=== PATIENT | male | born 1960 | race Caucasian/White ===

== ENCOUNTER 2018-05-29 05:35 | Inpatient (IN) | payer OTHER ==
[2018-05-24 10:57] LABS: BILIRUBIN,URINE NEGATIVE (NEGATIVE); BLOOD, URINE NEGATIVE (NEGATIVE); CLARITY/URINE CLEAR (CLEAR); COLOR,URINE YELLOW (YELLOW); GLUCOSE,URINE NEGATIVE (NEGATIVE); KETONES,URINE NEGATIVE (NEGATIVE); LEUKOCYTE ESTERASE ,URINE NEGATIVE (NEGATIVE); NITRITE, URINE NEGATIVE (NEGATIVE); PROTEIN URINE NEGATIVE (NEGATIVE); UROBILINOGEN,URINE 0.2 (0.2-1.0)
[2018-05-24 11:05] LABS: BASOPHILS # (AUTO) 0.1 K/uL (0.0-0.2); BASOPHILS % (AUTO) 1.7 % (0.0-2.0); CALCIUM 9.5 mg/dL (8.4-11.0); CREATININE 0.79 mg/dL (0.55-1.30); EOSINOPHILS # (AUTO) 0.2 K/uL (0.0-0.4); EOSINOPHILS % (AUTO) 3.4 % (0.0-4.0); HEMATOCRIT 46.8 % (36-54); HEMOGLOBIN 15.3 g/dL (14.0-18.0); LYMPHOCYTES # (AUTO) 1.3 K/uL (1.0-5.5); LYMPHOCYTES % (AUTO) 21.4 % (20.5-51.5); MEAN CORPUSCULAR HEMOGLOBIN 30 pg (27-31); MEAN CORPUSCULAR HGB CONC 33 % (32-36); MEAN CORPUSCULAR VOLUME 92 fL (79.0-98.0); MONOCYTES # (AUTO) 0.6 K/uL (0.0-1.0); MONOCYTES % (AUTO) 9.5 % (1.7-9.3); NEUTROPHILS # (AUTO) 3.9 K/uL (1.8-7.7); PLATELET COUNT (AUTO) 330 K/uL (130-430); POTASSIUM 4.3 mmol/L (3.5-5.1); RED BLOOD CELL COUNT(AUTO) 5.07 MIL/uL (4.2-6.2); WHITE BLOOD COUNT (AUTO) 6.1 K/uL (4.8-10.8)
[~2018-05-29] VITALS: Ht 175.3 cm; Wt 90.7 kg
[2018-05-29] MEDS ORDERED: ACETAMINOPHEN 500 MG TABLET ONE (06:23)
[2018-05-29] MEDS ORDERED: CELECOXIB 200 MG CAPSULE ONE (06:24)
[2018-05-29] MEDS ORDERED: GABAPENTIN 300 MG CAPSULE ONE (06:24)
[2018-05-29] MEDS ORDERED: TRANEXAMIC ACID 650 MG TABLET ONE (06:25)
[2018-05-29] MEDS ORDERED: oxyCODONE HCL 10 MG TAB.ER.12H PO ONE (06:25)
[2018-05-29] MEDS ORDERED: LORA-259 PO (06:38)
[2018-05-29] MEDS ORDERED: IBUP-2101 (06:38)
[2018-05-29] MEDS ORDERED: VENL37.55 PO (06:38)
[2018-05-29] MEDS ORDERED: OMEP20TA20 PO (06:38)
[2018-05-29] MEDS ORDERED: CEFAZOLIN 2 GM IVPB PREMIX 50 ML IV ONE (07:00)
[2018-05-29] MEDS ORDERED: POLYMYXIN 500,000/BACIT.10,000 UNITS in NS IRR 1 L IR ONE (07:22)
[2018-05-29] MEDS ORDERED: VANCOMYCIN HCL 1000 MG/VIAL IV ONE (08:00)
[2018-05-29] MEDS ORDERED: PROPOFOL 200MG/ 20ML VIAL (DIPRIVAN) IV ONE (08:00)
[2018-05-29] MEDS ORDERED: ROPIVACAINE HCL/PF 5 MG/ML 0.5% 30 ML VIAL INJ ONE (08:00)
[2018-05-29] MEDS ORDERED: TRANEXAMIC ACID 1,000 MG/10 ML VIAL IV ONE (08:00)
[2018-05-29] MEDS ORDERED: BUPIVACAINE /DEX PF 0.75% SPINAL 2 ML AMP INJ ONE (08:00)
[2018-05-29] MEDS ORDERED: ROPIVACAINE 0.2% (NAROPIN) PF SOLUTION 100 ML BOTTLE EP ONE (08:00)
[2018-05-29] MEDS ORDERED: ONDANSETRON HCL 4 MG/2 ML VIAL IVP ONE (08:00)
[2018-05-29] MEDS ORDERED: LR 1,000 ML IV.SOLN IV ONE (08:00)
[2018-05-29] MEDS ORDERED: MIDAZOLAM HCL 5 MG/5 ML VIAL IVP ONE (08:00)
[2018-05-29] MEDS ORDERED: ACETAMINOPHEN 500 MG TABLET PO ONE (08:45)
[2018-05-29] MEDS ORDERED: NALOXONE HCL 0.4 MG/ML AMP (NARCAN) IVP PRN ×2 (09:00)
[2018-05-29] MEDS ORDERED: KETOROLAC TROMETHAMINE 60 MG/2 ML VIAL IM PRN (09:00)
[2018-05-29] MEDS ORDERED: NALBUPHINE HCL 10 MG/ML AMP IVP PRN ×2 (09:00)
[2018-05-29] MEDS ORDERED: DIPHENHYDRAMINE INJ 50 MG/ML VIAL IVP PRN ×2 (09:00)
[2018-05-29] MEDS ORDERED: ONDANSETRON HCL 4 MG/2 ML VIAL IVP PRN ×2 (09:00)
[2018-05-29] MEDS ORDERED: OXYCODONE/ACETAMINOPHEN *10*mg/325 mg TABLET PO PRN (09:00)
[2018-05-29] MEDS ORDERED: MORPHINE SULFATE 10MG/10ML PF AMP SP SCH (09:00)
[2018-05-29] MEDS ORDERED: fentaNYL CITRATE/PF 100 MCG/2 ML AMP IVP PRN ×2 (09:00)
[2018-05-29] MEDS ORDERED: GABAPENTIN 300 MG CAPSULE PO ONE (09:30)
[2018-05-29] MEDS ORDERED: CELECOXIB 200 MG CAPSULE PO ONE (09:30)
[2018-05-29] MEDS ORDERED: TRANEXAMIC ACID 650 MG TABLET PO ONE (09:30)
[2018-05-29] MEDS ORDERED: ACETAMINOPHEN 325 MG TABLET PO PRN (10:00)
[2018-05-29] MEDS ORDERED: BISACODYL 10 MG/SUPPOSITORY RC PRN (10:00)
[2018-05-29] MEDS ORDERED: D5/0.45 NS 1,000 ML IV ONE (10:00)
[2018-05-29 11:39] VITALS: BP_SYST 129
[2018-05-29 12:30] VITALS: BP_SYST 122
[2018-05-29] MEDS: CEFAZOLIN 1 GM IVPB PREMIX 50 ML IV SCH ×2 (13:39→18:12)
[2018-05-29 16:00] VITALS: BP_SYST 129
[2018-05-29] MEDS: MORPHINE SULFATE 10 MG/ML VIAL IM PRN ×2 (16:39→21:10)
[2018-05-29 16:40] VITALS: BP_SYST 114
[2018-05-29] MEDS: RIVAROXABAN 10 MG TABLET PO SCH (18:11)
[2018-05-29 20:00] VITALS: BP_SYST 106
[2018-05-30 02:10] VITALS: BP_SYST 112
[2018-05-30] MEDS: MORPHINE SULFATE 10 MG/ML VIAL IM PRN ×2 (05:32→10:58)
[2018-05-30 07:54] VITALS: BP_SYST 151
[2018-05-30 08:01] LABS: BASOPHILS # (AUTO) 0.1 K/uL (0.0-0.2); BASOPHILS % (AUTO) 0.7 % (0.0-2.0); EOSINOPHILS # (AUTO) 0.2 K/uL (0.0-0.4); EOSINOPHILS % (AUTO) 2.2 % (0.0-4.0); HEMATOCRIT 36.9 % (36-54); HEMOGLOBIN 12.3 g/dL (14.0-18.0); LYMPHOCYTES % (AUTO) 13.3 % (20.5-51.5); MEAN CORPUSCULAR HEMOGLOBIN 31 pg (27-31); MEAN CORPUSCULAR HGB CONC 33 % (32-36); MEAN CORPUSCULAR VOLUME 94 fL (79.0-98.0); MONOCYTES # (AUTO) 0.5 K/uL (0.0-1.0); MONOCYTES % (AUTO) 7.3 % (1.7-9.3); NEUTROPHILS # (AUTO) 5.6 K/uL (1.8-7.7); NEUTROPHILS % (AUTO) 76.5 % (40.0-70.0); PLATELET COUNT (AUTO) 293 K/uL (130-430); RED BLOOD CELL COUNT(AUTO) 3.92 MIL/uL (4.2-6.2); RED CELL DISTRIBUTION WIDTH 13.4 % (9.0-15.0); WHITE BLOOD COUNT (AUTO) 7.4 K/uL (4.8-10.8)
[2018-05-30 08:09] LABS: CALCIUM 8.2 mg/dL (8.4-11.0); CREATININE 0.78 mg/dL (0.55-1.30); POTASSIUM 3.9 mmol/L (3.5-5.1)
[2018-05-30] MEDS ORDERED: ZOLPIDEM TARTRATE 5 MG TABLET PO PRN (08:30)
[2018-05-30] MEDS: ROPIVACAINE 0.2% 550 ML INJ SCH ×2 (08:46→09:39)
[2018-05-30] MEDS: Effexor XR 37.5 MG PO SCH (09:08)
[2018-05-30 12:37] VITALS: BP_SYST 106
[2018-05-30] MEDS: HYDROcodone/ACETAMIN 7.5-325 MG TAB PO PRN ×2 (16:26→21:05)
[2018-05-30 16:33] VITALS: BP_SYST 131
[2018-05-30] MEDS: RIVAROXABAN 10 MG TABLET PO SCH (17:40)
[2018-05-30 19:19] VITALS: BP_SYST 137
[2018-05-30 23:19] VITALS: BP_SYST 141
[2018-05-31] MEDS: HYDROcodone/ACETAMIN 7.5-325 MG TAB PO PRN ×4 (02:18→17:49)
[2018-05-31 06:57] LABS: BASOPHILS % (AUTO) 0.3 % (0.0-2.0); EOSINOPHILS # (AUTO) 0.2 K/uL (0.0-0.4); EOSINOPHILS % (AUTO) 1.8 % (0.0-4.0); HEMATOCRIT 35.8 % (36-54); HEMOGLOBIN 11.8 g/dL (14.0-18.0); LYMPHOCYTES # (AUTO) 1.1 K/uL (1.0-5.5); MEAN CORPUSCULAR HEMOGLOBIN 31 pg (27-31); MEAN CORPUSCULAR HGB CONC 33 % (32-36); MEAN CORPUSCULAR VOLUME 94 fL (79.0-98.0); MONOCYTES # (AUTO) 0.8 K/uL (0.0-1.0); MONOCYTES % (AUTO) 8.9 % (1.7-9.3); NEUTROPHILS # (AUTO) 6.5 K/uL (1.8-7.7); PLATELET COUNT (AUTO) 249 K/uL (130-430); RED BLOOD CELL COUNT(AUTO) 3.81 MIL/uL (4.2-6.2); RED CELL DISTRIBUTION WIDTH 13.3 % (9.0-15.0); WHITE BLOOD COUNT (AUTO) 8.6 K/uL (4.8-10.8)
[2018-05-31 07:40] LABS: CALCIUM 8.7 mg/dL (8.4-11.0); CREATININE 0.83 mg/dL (0.55-1.30); POTASSIUM 4.3 mmol/L (3.5-5.1)
[2018-05-31 08:00] VITALS: BP_SYST 118
[2018-05-31] MEDS: ROPIVACAINE 0.2% 550 ML INJ SCH (08:46)
[2018-05-31] MEDS: Effexor XR 37.5 MG PO SCH (09:01)
[2018-05-31 12:35] VITALS: BP_SYST 130
[2018-05-31 13:40] VITALS: BP_SYST 138
[2018-05-31] MEDS: MORPHINE SULFATE 10 MG/ML VIAL IM PRN ×2 (13:40→21:52)
[2018-05-31 16:36] VITALS: BP_SYST 129
[2018-05-31] MEDS: RIVAROXABAN 10 MG TABLET PO SCH (17:50)
[2018-05-31 20:00] VITALS: BP_SYST 114
[2018-06-01 00:26] VITALS: BP_SYST 130
[2018-06-01] MEDS: HYDROcodone/ACETAMIN 7.5-325 MG TAB PO PRN ×4 (02:46→15:40)
[2018-06-01 06:51] LABS: BASOPHILS # (AUTO) 0.1 K/uL (0.0-0.2); BASOPHILS % (AUTO) 0.7 % (0.0-2.0); EOSINOPHILS # (AUTO) 0.3 K/uL (0.0-0.4); HEMATOCRIT 31.9 % (36-54); HEMOGLOBIN 10.6 g/dL (14.0-18.0); LYMPHOCYTES # (AUTO) 1.2 K/uL (1.0-5.5); LYMPHOCYTES % (AUTO) 15.2 % (20.5-51.5); MEAN CORPUSCULAR HEMOGLOBIN 31 pg (27-31); MEAN CORPUSCULAR HGB CONC 33 % (32-36); MEAN CORPUSCULAR VOLUME 94 fL (79.0-98.0); MONOCYTES # (AUTO) 0.7 K/uL (0.0-1.0); MONOCYTES % (AUTO) 9.4 % (1.7-9.3); NEUTROPHILS # (AUTO) 5.6 K/uL (1.8-7.7); NEUTROPHILS % (AUTO) 70.7 % (40.0-70.0); PLATELET COUNT (AUTO) 263 K/uL (130-430); RED BLOOD CELL COUNT(AUTO) 3.41 MIL/uL (4.2-6.2); RED CELL DISTRIBUTION WIDTH 13.2 % (9.0-15.0); WHITE BLOOD COUNT (AUTO) 7.9 K/uL (4.8-10.8)
[2018-06-01 07:10] LABS: CALCIUM 8.5 mg/dL (8.4-11.0); CREATININE 0.83 mg/dL (0.55-1.30); POTASSIUM 4.2 mmol/L (3.5-5.1)
[2018-06-01 07:30] VITALS: BP_SYST 120
[2018-06-01] MEDS: Effexor XR 37.5 MG PO SCH (08:56)
[2018-06-01 10:24] VITALS: BP_SYST 120
[2018-06-01 10:31] VITALS: BP_SYST 131
[2018-06-01] MEDS ORDERED: DOCUSATE SODIUM 250 MG CAPSULE PO ONE (12:15)
[2018-06-01 12:50] VITALS: BP_SYST 131
[2018-06-01] MEDS ORDERED: RIVA10TA PO (14:26)
[2018-06-01] MEDS ORDERED: HYDR-2489 PO (14:26)
[2018-06-01 16:30] VITALS: BP_SYST 131
[2018-06-01] MEDS: RIVAROXABAN 10 MG TABLET PO SCH (17:53)
== END 2018-06-01 18:35 | DRG 470 ==
LOC: SMU 05:35
PROVIDERS: ADMIT Orthopaedic Surgery; ATTEND Orthopaedic Surgery
PROC: 0SRC0J9 Replacement of Right Knee Joint with Synthetic Substitute, Cemented, Open Approach (ICD-10-PCS; principal; 2018-05-29 08:30)
DX: M17.11 Unilateral primary osteoarthritis, right knee (principal); F32.9 Major depressive disorder, single episode, unspecified; G89.29 Other chronic pain
CPT/HCPCS: 36415; 71046-TC; 80048; 81003; 85025; 85610-TC; 85730-TC; 87081; 88305; 88311; 90656; 94010; 97039; 97110-GP; 97116-GP; 97530-GP; C1713; C1776; J0690; J2250; J2270; J2405; J2704; J2795; J3370; J3490; J7120

== ENCOUNTER 2019-03-26 22:22 | Emergency (ER) | payer OTHER ==
[~2019-03-26] VITALS: Ht 172.7 cm; Wt 113.4 kg
[~2019-03-26 22:22] MED LIST: HYDR-4274 PO; LORA-259 PO; RIVA10TA PO; VENL37.55 PO
[2019-03-26 22:24] VITALS: BP_SYST 138
[2019-03-26] MEDS ORDERED: NACL 0.9% 1,000 ML IV ONE (22:59)
[2019-03-26 23:24] LABS: BASOPHILS % (AUTO) 0.6 % (0.0-2.0); EOSINOPHILS # (AUTO) 0.2 K/uL (0.0-0.4); EOSINOPHILS % (AUTO) 4.6 % (0.0-4.0); HEMATOCRIT 42.2 % (36-54); HEMOGLOBIN 14.4 g/dL (14.0-18.0); LYMPHOCYTES # (AUTO) 1.4 K/uL (1.0-5.5); LYMPHOCYTES % (AUTO) 30.2 % (20.5-51.5); MEAN CORPUSCULAR HEMOGLOBIN 33 pg (27-31); MEAN CORPUSCULAR HGB CONC 34 % (32-36); MEAN CORPUSCULAR VOLUME 97 fL (79.0-98.0); MONOCYTES # (AUTO) 0.6 K/uL (0.0-1.0); MONOCYTES % (AUTO) 12.5 % (1.7-9.3); NEUTROPHILS # (AUTO) 2.5 K/uL (1.8-7.7); NEUTROPHILS % (AUTO) 52.1 % (40.0-70.0); PLATELET COUNT (AUTO) 282 K/uL (130-430); RED BLOOD CELL COUNT(AUTO) 4.36 MIL/uL (4.2-6.2); RED CELL DISTRIBUTION WIDTH 14.5 % (9.0-15.0); WHITE BLOOD COUNT (AUTO) 4.8 K/uL (4.8-10.8)
[2019-03-26 23:42] LABS: PROTHROMBIN TIME 9.8 SECS (9.5-12.5)
[2019-03-26 23:45] LABS: ALANINE AMINOTRANSFERASE 49 U/L (12-78); ALBUMIN 3.5 g/dL (3.4-4.8); ALCOHOL, BLOOD 284 mg/dL (<10); ANION GAP 11 (5-15); ASPARTATE AMINOTRANSFERASE 44 U/L (10-37); CHLORIDE 108 mmol/L (98-107); CREATININE 0.92 mg/dL (0.55-1.30); GLUCOSE 110 mg/dL (70-99); LIPASE 198 U/L (73-393); POTASSIUM 3.5 mmol/L (3.5-5.1); SODIUM SERUM 141 mmol/L (136-145); UREA NITROGEN, BLOOD 11 mg/dL (8-21)
[2019-03-26 23:46] LABS: GFR AFRICAN AMERICAN 109 mL/min (>90)
[2019-03-27 00:14] LABS: TOTAL BILIRUBIN < 0.1 mg/dL (0.0-1.0)
[2019-03-27 00:39] LABS: BILIRUBIN,URINE NEGATIVE (NEGATIVE); CLARITY/URINE CLEAR (CLEAR); COLOR,URINE YELLOW (YELLOW); GLUCOSE,URINE NEGATIVE (NEGATIVE); KETONES,URINE NEGATIVE (NEGATIVE); LEUKOCYTE ESTERASE ,URINE NEGATIVE (NEGATIVE); NITRITE, URINE NEGATIVE (NEGATIVE); PH,URINE 5.5 (5.0-8.0); PROTEIN URINE NEGATIVE (NEGATIVE); UROBILINOGEN,URINE 0.2 (0.2-1.0)
[2019-03-27 00:46] LABS: BLOOD, URINE TRACE (NEGATIVE)
[2019-03-27 00:54] LABS: BARBITURATE, URINE NEGATIVE (NEG <=200); BENZODIAZEPINE, URINE POSITIVE (NEG <=150); CANNABINOID, URINE NEGATIVE (NEG <=50); COCAINE, URINE NEGATIVE (NEG <=150); METHAMPHETAMINES SCREEN,URINE NEGATIVE (NEG <=500); OPIATE, URINE NEGATIVE (NEG <=100); PHENCYCLIDINE SCREEN,URINE NEGATIVE (NEG <=25); UR TRICYCLIC ANTIDEPRESSANTS NEGATIVE (NEG <=300); URINE AMPHETAMINE NEGATIVE (NEG <=500); URINE METHADONE NEGATIVE (NEG <=200); URINE OXYCODONE SCREEN NEGATIVE (NEG <=100); URINE PROPOXYPHENE SCREEN NEGATIVE (NEG <=300)
[2019-03-27 01:27] LABS: WBC,URINE 0-3 /HPF (0-3)
[2019-03-27 01:28] LABS: BACTERIA,URINE FEW /HPF (None Seen)
[2019-03-27 01:36] LABS: CALCIUM 8.8 mg/dL (8.4-11.0)
[2019-03-27 03:37] VITALS: BP_SYST 109
== END 2019-03-27 03:37 | disposition short-term general hospital (02) ==
LOC: SED 22:22
DX: R41.82 Altered mental status, unspecified (principal); F10.129 Alcohol abuse with intoxication, unspecified; R10.9 Unspecified abdominal pain; R47.81 Slurred speech; Z79.899 Other long term (current) drug therapy
CPT/HCPCS: 36415; 70450; 71045; 80053; 74150; 80307; 81000; 83690; 84484; 85025; 85610; 85730; 93005; 96360; 96361; 99285; G0482; J7030; 81025; 99283; 99284

== ENCOUNTER 2021-06-18 16:28 | Emergency (ER) | payer OTHER, SELFPAY ==
[~2021-06-18] VITALS: Ht 175.3 cm; Wt 93.0 kg
[2021-06-18 16:28] VITALS: BP_SYST 85
[2021-06-18] MEDS ORDERED: NACL 0.9% 1,000 ML IV ONE ×4 (16:45→20:15)
[2021-06-18 17:19] LABS: BASOPHILS # (AUTO) 0.1 K/uL (0.0-0.2); BASOPHILS % (AUTO) 0.5 % (0.0-2.0); EOSINOPHILS # (AUTO) 0.1 K/uL (0.0-0.4); EOSINOPHILS % (AUTO) 0.5 % (0.0-4.0); HEMATOCRIT 35.9 % (36-54); HEMOGLOBIN 11.6 g/dL (14.0-18.0); LYMPHOCYTES # (AUTO) 0.3 K/uL (1.0-5.5); LYMPHOCYTES % (AUTO) 2.5 % (20.5-51.5); MEAN CORPUSCULAR HEMOGLOBIN 29 pg (27-31); MEAN CORPUSCULAR HGB CONC 32 % (32-36); MEAN CORPUSCULAR VOLUME 88 fL (79.0-98.0); MONOCYTES # (AUTO) 0.4 K/uL (0.0-1.0); MONOCYTES % (AUTO) 2.9 % (1.7-9.3); NEUTROPHILS % (AUTO) 93.6 % (40.0-70.0); PLATELET COUNT (AUTO) 171 K/uL (130-430); RED BLOOD CELL COUNT(AUTO) 4.08 MIL/uL (4.2-6.2); RED CELL DISTRIBUTION WIDTH 16.2 % (9.0-15.0); WHITE BLOOD COUNT (AUTO) 12.8 K/uL (4.8-10.8)
[2021-06-18] MEDS ORDERED: NEU300 PO (17:29)
[2021-06-18] MEDS ORDERED: BUPR-120 PO (17:29)
[2021-06-18] MEDS ORDERED: VENL150C2 PO (17:29)
[2021-06-18] MEDS ORDERED: ATEN50TA PO (17:29)
[2021-06-18 17:35] LABS: CALCIUM 8.3 mg/dL (8.4-11.0); CREATININE 2.67 mg/dL (0.55-1.30); POTASSIUM 4.9 mmol/L (3.5-5.1)
[2021-06-18 17:42] LABS: ALBUMIN 2.6 g/dL (3.4-4.8); TOTAL BILIRUBIN 0.4 mg/dL (0.0-1.0)
[2021-06-18 18:04] LABS: FREE T4 (FREE THYROXINE) 0.9 ng/dl (0.8-1.5); THYROID STIMULATING HORMONE 1.73 uIu/mL (0.36-3.74)
[2021-06-18 18:25] LABS: INR 1.2 (0.80-1.20); PROTHROMBIN TIME 12.8 SECS (9.5-12.5)
[2021-06-18] MEDS ORDERED: IOHEXOL 350 mgI/mL, 150 ML INFUS..BTL IV ONE (19:42)
[2021-06-18 20:04] LABS: BARBITURATE, URINE NEGATIVE (NEG <=200); METHAMPHETAMINES SCREEN,URINE NEGATIVE (NEG <=500); URINE AMPHETAMINE NEGATIVE (NEG <=500); URINE METHADONE NEGATIVE (NEG <=200)
[2021-06-18 20:05] LABS: BENZODIAZEPINE, URINE POSITIVE (NEG <=150); CANNABINOID, URINE NEGATIVE (NEG <=50); COCAINE, URINE NEGATIVE (NEG <=150); OPIATE, URINE NEGATIVE (NEG <=100); PHENCYCLIDINE SCREEN,URINE NEGATIVE (NEG <=25); UR TRICYCLIC ANTIDEPRESSANTS NEGATIVE (NEG <=300); URINE OXYCODONE SCREEN NEGATIVE (NEG <=100); URINE PROPOXYPHENE SCREEN NEGATIVE (NEG <=300)
[2021-06-18 23:12] VITALS: BP_SYST 98
[2021-06-18 23:37] LABS: BILIRUBIN,URINE NEGATIVE (NEGATIVE); BLOOD, URINE 1+ (NEGATIVE); CLARITY/URINE CLEAR (CLEAR); COLOR,URINE YELLOW (YELLOW); GLUCOSE,URINE NEGATIVE (NEGATIVE); KETONES,URINE NEGATIVE (NEGATIVE); LEUKOCYTE ESTERASE ,URINE 1+ (NEGATIVE); NITRITE, URINE POSITIVE (NEGATIVE); PROTEIN URINE TRACE (NEGATIVE); UROBILINOGEN,URINE 0.2 (0.2-1.0)
[2021-06-19 01:28] LABS: BACTERIA,URINE MANY /HPF (None Seen); MUCUS,URINE None Seen /LPF (None Seen); URINE AMORPHOUS URATE 1+ /HPF (None Seen)
== END 2021-06-18 23:01 | disposition short-term general hospital (02) ==
LOC: SED 16:28
DX: N17.9 Acute kidney failure, unspecified (principal); R42 Dizziness and giddiness; I95.9 Hypotension, unspecified; Z79.899 Other long term (current) drug therapy; Z20.822 Contact with and (suspected) exposure to COVID-19
CPT/HCPCS: 36415; 70450; 71045; 71275; 76376; 80053; 80307; 81000; 82550; 83605; 83880; 84439; 84443; 84479; 84484; 85025; 85379; 85610; 85730; 86901; 87040; 87086; 87426; 93306; 93970; 96360; 96361; 99285; J7030; Q9967

== ENCOUNTER 2021-09-04 02:07 | Emergency (ER) | payer OTHER ==
[~2021-09-04] VITALS: Ht 175.3 cm; Wt 95.3 kg
[~2021-09-04 02:07] MED LIST changes: +ATEN50TA PO; +BUPR-120 PO; -HYDR-4274 PO; -LORA-259 PO; +NEU300 PO; -RIVA10TA PO; +VENL150C2 PO; -VENL37.55 PO
[2021-09-04 02:12] VITALS: BP_SYST 117
[2021-09-04] MEDS ORDERED: ACET1TAB23 PO (04:06)
[2021-09-04 05:19] VITALS: BP_SYST 123
== END 2021-09-04 05:18 | disposition home or self-care (01) ==
LOC: SED 02:07
DX: S82.61XA Displaced fracture of lateral malleolus of right fibula, initial encounter for closed fracture (principal); F10.129 Alcohol abuse with intoxication, unspecified; I10 Essential (primary) hypertension; G89.29 Other chronic pain; Z79.899 Other long term (current) drug therapy; Z96.651 Presence of right artificial knee joint; W18.39XA Other fall on same level, initial encounter; Y93.89 Activity, other specified; Y92.89 Other specified places as the place of occurrence of the external cause; Y99.8 Other external cause status
CPT/HCPCS: 70450-TC; 76376; 99284